=== PATIENT | female | born 1985 | race Caucasian/White ===

== ENCOUNTER 2017-12-05 16:13 | Emergency (ER) | payer SELFPAY ==
--- NOTE | 2017-12-05 16:44 | EDPHY ---
H & P Time Seen by Provider: 12/05/17 16:43 Medical Decision Making ED Course/Re-evaluation: CHIEF COMPLAINT: HISTORY OF PRESENT ILLNESS: must have 4 elements: Location, Quality, Severity , Duration, Timing, Context, Modifying Factors, Associated Signs and Symptoms REVIEW OF SYSTEMS: A 10 point review of systems was performed and is negative with the exception of the elements mentioned in the history of present illness. PHYSICAL EXAM: HR, BP, O2 Sat, RR. Temp noted General Appearance: Alert, well hydrated, appropriate, and non-toxic appearing. Head: Atraumatic without scalp tenderness or obvious injury Eyes: Pupils equal, round, reactive to light and accommodation, EOMI, no trauma , no injection. Ears: Clear bilaterally, no perforation, normal landmarks Nose: Atraumatic, no rhinorrhea, clear. Throat: There is no erythema or exudates, no lesions, normal tonsils, mucus membranes moist. Neck: Supple, 2+ carotid upstroke, nontender, no lymphadenopathy. Respiratory: No retractions, no distress, no wheezes, and no accessory muscle use. Lungs are clear to auscultation bilaterally. Cardiovascular: Regular rate and rhythm, no murmurs, rubs, or gallops. Bilateral carotid, radial, dorsalis pedis, and posterior tibial pulses intact. Good capillary refill all extremities. Gastrointestinal: Abdomen is soft, nontender, non-distended, no masses, no rebound, no guarding, no peritoneal signs. Musculoskeletal: Normal active ROM of all extremities, atraumatic. Neurological: Alert, appropriate, and interactive. The patient has normal DTRs and non-focal cranial nerves, motor, sensory, and cerebellar exam. Skin: No rashes, good turgor, no nodules on palpation. Past medical history: Past surgical history: Family history: Social history: DIAGNOSTICS/PROCEDURES/CRITICAL CARE TIME: DIFFERENTIAL DIAGNOSIS: MEDICAL DECISION MAKING: Departure - Departure Referrals: Patient,NotPresent [Primary Care Provider] - As per Instructions
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
[2017-12-05 17:42] VITALS: TEMP 98.6
[2017-12-05] MEDS ORDERED: LORazepam 1 MG TAB ONE (18:09)
[2017-12-05] MEDS ORDERED: LORazepam 1 MG TAB PO ONE (18:10)
[2017-12-05] MEDS ORDERED: HALOPERIDOL LACT 5 MG/ML INJ IM ONE (18:13)
[2017-12-05] MEDS ORDERED: LORazepam 2 MG/ML INJ IM ONE (18:14)
[2017-12-05 18:56] LABS: PLATELET COUNT 361 10^3/uL (150-400)
[2017-12-05 21:40] VITALS: BP 99/68
[2017-12-06 04:32] VITALS: PULSE 86; RESP 18; O2SAT 93
== END 2017-12-06 05:09 | disposition home or self-care (01) ==
DX: S00.03XA Contusion of scalp, initial encounter (principal); F10.920 Alcohol use, unspecified with intoxication, uncomplicated; F14.10 Cocaine abuse, uncomplicated; Y04.8XXA Assault by other bodily force, initial encounter; Y92.810 Car as the place of occurrence of the external cause; Y93.89 Activity, other specified
CPT/HCPCS: 80305; G0480; J1630; J2060